=== PATIENT | female | born 1930 | race Caucasian/White ===

== ENCOUNTER → 2017-05-27 | Outpatient (CLI) | payer MEDICARE | END | disposition home or self-care (01) | LOC: LAB 16:35 | PROVIDERS: Physician Assistant | DX: Z01.818 Encounter for other preprocedural examination (principal); N18.9 Chronic kidney disease, unspecified ==

== ENCOUNTER 2017-09-15 09:28 | Inpatient (IN) | payer MEDICARE ==
[~2017-09-15] VITALS: Ht 152.4 cm; Wt 75.7 kg
[2017-09-15] VITALS (7 sets, daily range): BP systolic 120–166; BP diastolic 56–74
[2017-09-15 16:38] LABS: BASO % 0.2 % (0.0-1.0); EOS # 0.2 10*3/uL (0.0-0.4); EOS % 2.6 % (1.0-4.0); HEMATOCRIT 36.3 % (37.0-47.0); HEMOGLOBIN 11.7 g/dl (12.0-16.0); LYMPH # 2.1 10*3/uL (1.3-4.4); LYMPH % 23.9 % (27.0-41.0); MEAN CELL VOLUME 98.1 fl (81.0-99.0); MEAN CORPUSCULAR HGB 31.6 pg (27.0-31.0); MEAN CORPUSCULAR HGB CONC 32.2 g/dl (33.0-37.0); MONO # 0.9 10*3/uL (0.1-1.0); MONO % 10.7 % (3.0-9.0); NEUT # 5.3 10*3/uL (2.3-7.9); NEUT % 62.1 % (47.0-73.0); PLATELET COUNT AUTOMATED 175 10*3/uL (130-400); RED CELL DISTRI WIDTH 13.6 % (0-14.5); WHITE BLOOD COUNT 8.6 10*3/uL (4.8-10.8)
[2017-09-15 16:47] LABS: INTERNATIONAL NORM RATIO 1.1 (2.0-3.5)
[2017-09-15 16:58] LABS: ALBUMIN 3.7 gm/dl (3.1-4.5); CREATININE 3.38 mg/dL (0.55-1.02); PHOSPHOROUS 3.4 mg/dL (2.5-4.9); POTASSIUM 4.8 mmol/L (3.5-5.1); TROPONIN I 0.026 ng/ml (<0.045)
[2017-09-15 16:59] LABS: TOTAL PROTEIN 6.9 gm/dL (6.4-8.2)
[2017-09-15] MEDS ORDERED: PRAVACHOL40 MG PO (18:01)
[2017-09-15] MEDS ORDERED: CALCIUM ACETAT667 MG PO ×2 (18:01→18:02)
[2017-09-15] MEDS ORDERED: ATIVAN0.5 MG PO (18:02)
[2017-09-15] MEDS ORDERED: SENSIPAR30 MG PO (18:02)
[2017-09-15] MEDS ORDERED: AMBIEN10 M1 PO (18:03)
[2017-09-15] MEDS ORDERED: Synthroid,Lev100 MCG PO (18:04)
[2017-09-15] MEDS ORDERED: NORCO 7.5-3251 EACH PO (18:04)
[2017-09-15] MEDS ORDERED: LISINOPRIL10 M1 PO (18:04)
[2017-09-15] MEDS ORDERED: MAGOX 400400 MG PO (18:05)
[2017-09-15] MEDS ORDERED: RENAL CAPS SOFTG1 MG PO (18:06)
[2017-09-16 06:27] LABS: BASO % 0.5 % (0.0-1.0); EOS # 0.2 10*3/uL (0.0-0.4); EOS % 2.7 % (1.0-4.0); HEMATOCRIT 35.8 % (37.0-47.0); HEMOGLOBIN 11.4 g/dl (12.0-16.0); LYMPH % 22.8 % (27.0-41.0); MEAN CELL VOLUME 99.7 fl (81.0-99.0); MEAN CORPUSCULAR HGB 31.8 pg (27.0-31.0); MEAN CORPUSCULAR HGB CONC 31.8 g/dl (33.0-37.0); MONO # 1.2 10*3/uL (0.1-1.0); MONO % 13.2 % (3.0-9.0); NEUT # 5.3 10*3/uL (2.3-7.9); NEUT % 60.3 % (47.0-73.0); PLATELET COUNT AUTOMATED 170 10*3/uL (130-400); RED BLOOD COUNT 3.59 10*6/uL (4.10-5.10); RED CELL DISTRI WIDTH 13.6 % (0-14.5); WHITE BLOOD COUNT 8.8 10*3/uL (4.8-10.8)
[2017-09-16 06:44] LABS: ALBUMIN 3.5 gm/dl (3.1-4.5); CREATININE 3.9 mg/dL (0.55-1.02); PHOSPHOROUS 4.3 mg/dL (2.5-4.9); POTASSIUM 4.9 mmol/L (3.5-5.1); TOTAL PROTEIN 6.9 gm/dL (6.4-8.2)
[2017-09-16 06:49] LABS: THYROID STIM HORMONE (HS) 1.26 uIU/ml (0.358-4.75)
[2017-09-16 08:00] VITALS: BP 135/40
[2017-09-16 08:46] LABS: VITAMIN D, 25-HYDROXY 34.6 ng/mL (30-100)
[2017-09-16 10:28] LABS: BILIRUBIN NEGATIVE (NEGATIVE); BLOOD NEGATIVE (NEGATIVE); CLARITY CLOUDY (CLEAR); COLOR YELLOW (YELLOW); GLUCOSE NEGATIVE (NEGATIVE); KETONE NEGATIVE (NEGATIVE); LEUKO ESTERASE 1+ (NEGATIVE); NITRITE NEGATIVE (NEGATIVE); PH >= 9.0 (5.0-9.0); SPECIFIC GRAVITY 1.015 (1.005-1.030); UROBILINOGEN 0.2 E.U./dl (0.2-1.0)
[2017-09-16 10:39] LABS: BACTERIA 2+; EPITHELIAL CELLS 20-30; WBC TNTC wbc/hpf (0-5)
[2017-09-16 12:00] VITALS: BP 140/77
[2017-09-16 16:00] VITALS: BP 138/64
[2017-09-16 20:00] VITALS: BP 148/48
[2017-09-17] VITALS: BP 113/52
[2017-09-17 07:08] LABS: BASO # 0.1 10*3/uL (0.0-0.1); BASO % 0.6 % (0.0-1.0); EOS # 0.3 10*3/uL (0.0-0.4); EOS % 3.1 % (1.0-4.0); HEMATOCRIT 38.5 % (37.0-47.0); HEMOGLOBIN 12.1 g/dl (12.0-16.0); LYMPH # 1.9 10*3/uL (1.3-4.4); LYMPH % 21.5 % (27.0-41.0); MEAN CELL VOLUME 100.3 fl (81.0-99.0); MEAN CORPUSCULAR HGB 31.5 pg (27.0-31.0); MEAN CORPUSCULAR HGB CONC 31.4 g/dl (33.0-37.0); MEAN PLATELET VOLUME 11.9 fl (9.6-12.3); MONO # 1.3 10*3/uL (0.1-1.0); MONO % 14.7 % (3.0-9.0); NEUT # 5.2 10*3/uL (2.3-7.9); NEUT % 59.6 % (47.0-73.0); PLATELET COUNT AUTOMATED 168 10*3/uL (130-400); RED BLOOD COUNT 3.84 10*6/uL (4.10-5.10); RED CELL DISTRI WIDTH 13.4 % (0-14.5); WHITE BLOOD COUNT 8.7 10*3/uL (4.8-10.8)
[2017-09-17 07:28] LABS: ALBUMIN 3.5 gm/dl (3.1-4.5); CREATININE 2.77 mg/dL (0.55-1.02); PHOSPHOROUS 3.4 mg/dL (2.5-4.9); POTASSIUM 4.5 mmol/L (3.5-5.1)
[2017-09-17 08:00] VITALS: BP 136/62
[2017-09-17 12:00] VITALS: BP 132/53
[2017-09-17 16:00] VITALS: BP 128/54
[2017-09-17 20:00] VITALS: BP 145/56
[2017-09-18] VITALS: BP 140/72
[2017-09-18 07:00] LABS: BASO % 0.3 % (0.0-1.0); EOS # 0.3 10*3/uL (0.0-0.4); EOS % 3.4 % (1.0-4.0); HEMATOCRIT 34.8 % (37.0-47.0); HEMOGLOBIN 11.1 g/dl (12.0-16.0); LYMPH # 1.6 10*3/uL (1.3-4.4); LYMPH % 17.1 % (27.0-41.0); MEAN CELL VOLUME 97.8 fl (81.0-99.0); MEAN CORPUSCULAR HGB 31.2 pg (27.0-31.0); MEAN CORPUSCULAR HGB CONC 31.9 g/dl (33.0-37.0); MEAN PLATELET VOLUME 11.5 fl (9.6-12.3); MONO # 1.3 10*3/uL (0.1-1.0); MONO % 13.9 % (3.0-9.0); NEUT # 5.9 10*3/uL (2.3-7.9); NEUT % 64.9 % (47.0-73.0); PLATELET COUNT AUTOMATED 161 10*3/uL (130-400); RED BLOOD COUNT 3.56 10*6/uL (4.10-5.10); RED CELL DISTRI WIDTH 13.2 % (0-14.5); WHITE BLOOD COUNT 9.1 10*3/uL (4.8-10.8)
[2017-09-18 07:28] LABS: CREATININE 3.74 mg/dL (0.55-1.02); POTASSIUM 4.1 mmol/L (3.5-5.1)
[2017-09-18 08:00] VITALS: BP 138/76
[2017-09-18 12:00] VITALS: BP 124/50
[2017-09-18 16:00] VITALS: BP 143/58
[2017-09-18 20:00] VITALS: BP 152/62
[2017-09-19] VITALS: BP 111/50
[2017-09-19 06:36] LABS: BASO % 0.4 % (0.0-1.0); EOS # 0.4 10*3/uL (0.0-0.4); EOS % 3.7 % (1.0-4.0); HEMATOCRIT 33.4 % (37.0-47.0); HEMOGLOBIN 10.8 g/dl (12.0-16.0); LYMPH # 2.7 10*3/uL (1.3-4.4); LYMPH % 27.6 % (27.0-41.0); MEAN CELL VOLUME 98.5 fl (81.0-99.0); MEAN CORPUSCULAR HGB 31.9 pg (27.0-31.0); MEAN CORPUSCULAR HGB CONC 32.3 g/dl (33.0-37.0); MEAN PLATELET VOLUME 11.6 fl (9.6-12.3); MONO # 1.4 10*3/uL (0.1-1.0); MONO % 14.5 % (3.0-9.0); NEUT # 5.1 10*3/uL (2.3-7.9); NEUT % 53.2 % (47.0-73.0); PLATELET COUNT AUTOMATED 161 10*3/uL (130-400); RED BLOOD COUNT 3.39 10*6/uL (4.10-5.10); RED CELL DISTRI WIDTH 13.2 % (0-14.5); WHITE BLOOD COUNT 9.6 10*3/uL (4.8-10.8)
[2017-09-19 06:47] LABS: POTASSIUM 4.8 mmol/L (3.5-5.1)
[2017-09-19 06:49] LABS: CREATININE 3.61 mg/dL (0.55-1.02)
[2017-09-19 08:00] VITALS: BP 163/84
[2017-09-19 12:00] VITALS: BP 132/50
[2017-09-19 16:00] VITALS: BP 136/54
[2017-09-19 20:00] VITALS: BP 136/51
[2017-09-20 08:00] VITALS: BP 150/64
[2017-09-20 16:00] VITALS: BP 139/65
[2017-09-20 20:00] VITALS: BP 137/58
[2017-09-21] VITALS: BP 140/46
[2017-09-21 08:00] VITALS: BP 147/72
[2017-09-21 12:00] VITALS: BP 144/69
[2017-09-21 16:00] VITALS: BP 108/56
[2017-09-21 20:00] VITALS: BP 122/49
[2017-09-22] VITALS: BP 112/52
[2017-09-22 08:00] VITALS: BP 127/43
[2017-09-22 12:00] VITALS: BP 127/54
[2017-09-22] MEDS ORDERED: NYSTOP60 GM T (14:01)
[2017-09-22] MEDS ORDERED: CYCLOBENZAPRINE10 MG PO (14:01)
[2017-09-22] MEDS ORDERED: AMBIEN10 M1 PO (14:01)
[2017-09-22] MEDS ORDERED: ATIVAN0.5 MG PO (14:01)
[2017-09-22] MEDS ORDERED: LACTULOSE20 GM/30 M PO (14:01)
[2017-09-22] MEDS ORDERED: NORCO 7.5-3251 EACH PO (14:01)
[2017-09-22] MEDS ORDERED: Insulin Lispro, Reco SC (14:01)
== END 2017-09-22 16:31 | disposition other institution (70) | DRG 557 ==
LOC: ED 09:28 → 5E 15:20 → EDHOLD 15:20 → 5E 15:33
PROVIDERS: Internal Medicine; Internal Medicine Nephrology
PROC: 0S9D3ZZ Drainage of Left Knee Joint, Percutaneous Approach (ICD-10-PCS; principal; 2017-09-15)
PROC: 5A1D70Z Performance of Urinary Filtration, Intermittent, Less than 6 Hours Per Day (ICD-10-PCS; 2017-09-16)
PROC: 5A1D70Z Performance of Urinary Filtration, Intermittent, Less than 6 Hours Per Day (ICD-10-PCS; 2017-09-18)
PROC: 5A1D70Z Performance of Urinary Filtration, Intermittent, Less than 6 Hours Per Day (ICD-10-PCS; 2017-09-21)
DX: M62.18 Other rupture of muscle (nontraumatic), other site (principal); N18.6 End stage renal disease; E11.22 Type 2 diabetes mellitus with diabetic chronic kidney disease; E11.65 Type 2 diabetes mellitus with hyperglycemia; I12.0 Hypertensive chronic kidney disease with stage 5 chronic kidney disease or end stage renal disease; I48.0 Paroxysmal atrial fibrillation; M25.062 Hemarthrosis, left knee; M84.452A Pathological fracture, left femur, initial encounter for fracture; M54.9 Dorsalgia, unspecified; S86.912A Strain of unspecified muscle(s) and tendon(s) at lower leg level, left leg, initial encounter; K57.30 Diverticulosis of large intestine without perforation or abscess without bleeding; Z96.653 Presence of artificial knee joint, bilateral; X58.XXXA Exposure to other specified factors, initial encounter; D72.810 Lymphocytopenia; R26.2 Difficulty in walking, not elsewhere classified; E66.09 Other obesity due to excess calories; D72.821 Monocytosis (symptomatic); D64.9 Anemia, unspecified; E03.9 Hypothyroidism, unspecified; M21.952 Unspecified acquired deformity of left thigh; F41.9 Anxiety disorder, unspecified; M79.81 Nontraumatic hematoma of soft tissue; E78.5 Hyperlipidemia, unspecified; G47.00 Insomnia, unspecified; K59.00 Constipation, unspecified; Z95.0 Presence of cardiac pacemaker; Z90.89 Acquired absence of other organs; Z98.51 Tubal ligation status; Z82.49 Family history of ischemic heart disease and other diseases of the circulatory system; Z80.0 Family history of malignant neoplasm of digestive organs; Z84.89 Family history of other specified conditions; Z88.8 Allergy status to other drugs, medicaments and biological substances; Z79.899 Other long term (current) drug therapy; Y93.89 Activity, other specified; Y92.89 Other specified places as the place of occurrence of the external cause; Y99.8 Other external cause status; Z68.33 Body mass index [BMI] 33.0-33.9, adult

== ENCOUNTER 2018-10-13 11:54 | Inpatient (IN) | payer MEDICARE ==
[~2018-10-13] VITALS: Ht 152.4 cm; Wt 77.3 kg
--- NOTE | ~2018-10-13 | EKG ---
[place], [place] ELECTROCARDIOGRAM REPORT NAME: CAROLEE LEYVA UNIT #: [id number] ROOM: 508 DOCTOR: SEBASTIAN DRAFT REPORT BIRTHDATE: [birth year] [facility] Test Date: 2018-10-13 Test Time: 12:18:02 Pat Name: CAROLEE LEYVA Department: Room: 508 Gender: F Sales Warehouse Driver: Joana Godinez : 1930 Requested By: GIO GIANG Order Number: [id number] Reading MD: Jun Alfonso MD Measurements Intervals [place] Rate: 96 P: ND: QRS: -56 QRSD: 160 T: 123 QT: 420 QTc: 531 Interpretive Statements Sinus tachycardia and V-paced complexes Atrial tracking and ventricular pacing noted No further analysis attempted due to paced rhythm Baseline wander in lead(s) II,III,aVF Electronically Signed On 10-16-2018 15:32:26 PST by Jun Alfonso MD CM:EKGRPT:ELECTROCARDIOGRAM REPORT [id number] GIO GIANG EPIPHANY DRAFT REPORT GIO GIANG
[~2018-10-13 11:54] MED LIST: AMBIEN10 M1 PO; ATIVAN0.5 MG PO; CALCIUM ACETAT667 MG PO; CYCLOBENZAPRINE10 MG PO; Insulin Lispro, Reco SC; LACTULOSE20 GM/30 M PO; LISINOPRIL5 MG PO; MAGOX 400400 MG PO; NORCO 7.5-3251 EACH PO; NYSTOP60 GM T; PRAVACHOL40 MG PO; RENAL CAPS SOFTG1 MG PO; SENSIPAR30 MG PO; Synthroid,Lev100 MCG PO
[2018-10-13 11:55] VITALS: BP 104/68
[2018-10-13 12:32] LABS: HEMATOCRIT 38.1 % (37.0-47.0); HEMOGLOBIN 12.3 g/dl (12.0-16.0); MEAN CELL VOLUME 99.5 fl (81.0-99.0); MEAN CORPUSCULAR HGB 32.1 pg (27.0-31.0); MEAN CORPUSCULAR HGB CONC 32.3 g/dl (33.0-37.0); MEAN PLATELET VOLUME 11.1 fl (9.6-12.3); PLATELET COUNT AUTOMATED 152 10*3/uL (130-400); RED BLOOD COUNT 3.83 10*6/uL (4.10-5.10); RED CELL DISTRI WIDTH 13.4 % (0-14.5); WHITE BLOOD COUNT 12.7 10*3/uL (4.8-10.8)
[2018-10-13 12:43] LABS: ACT PARTIAL THROMBO TIME 24.3 SECONDS (20.8-31.5)
[2018-10-13 12:48] LABS: TOTAL CELLS COUNTED 100 #CELLS
[2018-10-13 12:49] LABS: PLATELET SUFFICIENCY NORMAL (NORMAL)
[2018-10-13 13:00] VITALS: BP 123/44
[2018-10-13 13:01] LABS: ALBUMIN 3.8 gm/dl (3.1-4.5); CREATININE 2.48 mg/dL (0.55-1.02); POTASSIUM 4.1 mmol/L (3.5-5.1); TOTAL PROTEIN 6.8 gm/dL (6.4-8.2)
[2018-10-13 15:00] VITALS: BP 108/54
[2018-10-13 15:45] VITALS: BP 110/60
--- NOTE | 2018-10-13 15:45 | NUR ---
Time: 1544 A 88 year old female admitted to 5E under services of KALEB DUQUE DO Pt. arrived via stretcher from ER. Chief complaint: pain to rt arm and pain with deep inspiration which started today. Pt states she had clots in her dialysis shunt and was at [facility] [place] on Tuesday for them to open it up. Daughter states that after the procedure her mom was having blood in urine and nausea and vomiting. States that she had dialysis yesterday and then half a day today which is her normal day. States that she developed pain today to rt arm and pain with deep inspiration while having dialysis. She was sent from dialysis to ER. Noted to have PE's, states she has never had a PE prior to this. MORGAN MARQUEZ
[2018-10-13] MEDS ORDERED: VIRT-CAPS SOFTGE1 MG PO (16:02)
[2018-10-13] MEDS ORDERED: NEURONTIN100 MG PO (16:03)
[2018-10-13] MEDS ORDERED: LORAZEPAM0.5 MG PO (16:18)
[2018-10-13] MEDS ORDERED: LACTULOSE20 GM/30 M PO (16:20)
[2018-10-13] MEDS ORDERED: BIOTIN5000 MC1 SL (16:23)
--- NOTE | 2018-10-13 16:45 | NUR ---
ANSWERING SERVICE WAS NOTIFIED OF DR. MARU LONDON. RESPONSE OF NOTIFICATION WAS SPOKE WITH PHYSICAL THERAPY MANAGER SHE TOOK REQUESTED INFORMATION AND STATES SHE WILL NOTIFY THE TEAM COORDINATOR PHYSICAN. MORGAN MARQUEZ
[2018-10-13 20:00] VITALS: BP 98/55
--- NOTE | 2018-10-13 20:24 | NUR ---
PT RESTING IN BED AT THIS TIME, EYES OPEN. ALERT ORIENTED AND PLEASANT MOOD. HEPARIN DRIP INFUSING PER ORDERS. IV SITE PATENT, DRESSING C/D/I. NO COMPLAINTS VOICED BY PT AT THIS TIME. ALL NEEDS CURRENTLY MET. RESPIRATIONS EASY AND UNLABORED ON ROOM AIR. CALL LIGHT IN REACH.
--- NOTE | 2018-10-13 23:13 | NUR ---
24 HR chart check completed.
--- NOTE | 2018-10-13 23:45 | NUR ---
APTT CALLED TO ANOTHER NURSE 103. DR CARVALHO NOTIFIED OF CRITICAL HIGH APTT. HEPARIN DRIP PUT ON HOLD FOR 60 MIN PER POLICY AND RESTARTED AT THIS TIME. RATE REDUCED FROM 18 UNITS/KG/HR TO 15 UNITS/KG/HR PER POLICY. VERIFIED BY 2 RNS. WILL CONTINUE TO MONITOR.
[2018-10-14] VITALS: BP 100/56
[2018-10-14 04:32] LABS: BASO # 0.1 10*3/uL (0.0-0.1); BASO % 0.6 % (0.0-1.0); EOS # 0.3 10*3/uL (0.0-0.4); EOS % 3.5 % (1.0-4.0); HEMATOCRIT 32.7 % (37.0-47.0); HEMOGLOBIN 10.3 g/dl (12.0-16.0); LYMPH # 2.7 10*3/uL (1.3-4.4); LYMPH % 31.6 % (27.0-41.0); MEAN CELL VOLUME 100.3 fl (81.0-99.0); MEAN CORPUSCULAR HGB 31.6 pg (27.0-31.0); MEAN CORPUSCULAR HGB CONC 31.5 g/dl (33.0-37.0); MONO # 1.1 10*3/uL (0.1-1.0); MONO % 12.8 % (3.0-9.0); NEUT # 4.4 10*3/uL (2.3-7.9); PLATELET COUNT AUTOMATED 134 10*3/uL (130-400); RED BLOOD COUNT 3.26 10*6/uL (4.10-5.10); RED CELL DISTRI WIDTH 13.6 % (0-14.5); WHITE BLOOD COUNT 8.7 10*3/uL (4.8-10.8)
[2018-10-14 04:46] LABS: CREATININE 3.7 mg/dL (0.55-1.02); PHOSPHOROUS 4.4 mg/dL (2.5-4.9); POTASSIUM 4.7 mmol/L (3.5-5.1); TOTAL PROTEIN 5.9 gm/dL (6.4-8.2)
[2018-10-14 04:47] LABS: FREE T4 0.88 ng/dl (0.76-1.46)
[2018-10-14 04:52] LABS: THYROID STIM HORMONE (HS) 2.22 uIU/ml (0.358-4.75)
--- NOTE | 2018-10-14 06:39 | NUR ---
PT C/O BACK PAIN. MORPHINE 2 MG ADMINSITERED VIA IV. TOLERATED WELL BY PT. WILL MONITOR FOR EFFECTIVENESS. CALL LIGHT IN REACH.
[2018-10-14 07:32] LABS: VITAMIN D, 25-HYDROXY 30.6 ng/mL (30-100)
[2018-10-14 08:00] VITALS: BP 136/46
--- NOTE | 2018-10-14 08:50 | NUR ---
Notified dialysis nurse that pt is a routine dialysis MWF pt. Notified of hx, that pt had clots in fistula and on tuesday she had procedure in [place]. Notified she had dialysis on and partial on tuesday, came to ER due to SOB and found multiple PE's. Dialysis nurse states she was not aware pt was here but she will speak with Dr. Oliver regarding pt and see if she will need dialysis today. Reviewed labs.
--- NOTE | 2018-10-14 08:55 | NUR ---
Spoke with Dr. Bearden regarding pt c/o sciatica pain that started suddenly this am. Notified pt is currently not having pain however she is laying flat and not moving. Notified that if pt moves she has terrible pain to rt side of back down right leg. Notified that she had morphine this am that really did not help the pain with movement and she was in a lot of pain while off floor having CXR. Pt is comfortable now but has not moved. Notified him of niece's statements that pt has had this before and when if flares up she is treated with iv steriods. Dr. Bearden states he will discuss with Dr. Mclaughlin when he arrives and they will be up to speak with pt in about 1 hour. Notified pt and niece of this and conversation with dialysis nurse.
--- NOTE | 2018-10-14 09:55 | NUR ---
Pt taken off floor for dialysis.
--- NOTE | 2018-10-14 12:40 | NUR ---
Returned to room after having dialysis.
--- NOTE | 2018-10-14 15:10 | NUR ---
Medicated with morphine per prn order for complaints pain to rt groin.
[2018-10-14 16:00] VITALS: BP 107/58
--- NOTE | 2018-10-14 16:24 | NUR ---
Spoke with Dr. Bearden regarding patients medications and IV start. See new orders.
[2018-10-14 20:00] VITALS: BP 141/57
--- NOTE | 2018-10-14 22:00 | NUR ---
HS MEDICATIONS TAKEN WITH EASE AT THIS TIME. NO S/S OF DISTRES CURRENTLY NOTED. LUNGS DIMINISHED WITH FAINT PB RALES. RESPIRATIONS EASY AND UNLABOERD ON ROOM AIR. ALL NEEDS MET, ALL SAFETY MEASURES IN PLACE. CALL LIGHT IN REACH.
[2018-10-15] VITALS: BP 102/46
--- NOTE | 2018-10-15 05:33 | NUR ---
PT C/O LEFT GROIN PAIN. MORPHINE 2 MG GIVEN VIA IV AT THIS TIME. TOLERATED WELL. WILL MONITOR FOR EFFECTIVENESS. CALL LIGHT IN REACH.
[2018-10-15 08:00] VITALS: BP 145/61
--- NOTE | 2018-10-15 08:25 | NUR ---
24 HR chart check completed.
--- NOTE | 2018-10-15 09:00 | NUR ---
LAYING FLAT IN BED. RESPIRATIONS EASY. LUNGS DIMINISHED, CLEAR. PULSE OX 94% RA. OFFERED AND EDUCATED REGARING TEDS, PLACED AT BEDSIDE. C/O PAIN TO TOP OF RIGHT GROIN RATING A 10, DESCRIBES "FIRE" - MEDICATED WITH ROUTINE NORCO. CALL LIGHT WITHIN REACH. WILL MONITOR FOR EFFECTIVENESS
--- NOTE | 2018-10-15 09:43 | NUR ---
DR MAURICIO HERE TO ASSESS PATIENT AND DISCUSS PLAN OF CARE
--- NOTE | 2018-10-15 10:30 | NUR ---
STATES RELIEF FROM EARLIER MEDS. RESTING IN BED. FAMILY PRESENT AT BEDSIDE. CALL LIGHT WITHIN REACH. NO FURTHER VOICED COMPLAINTS
--- NOTE | 2018-10-15 11:02 | NUR ---
PHYSICAL THERAPY PT EVAL COMPLETED TODAY ON LEVEL 5: FULL EVALUATION TO FOLLOW . RECOMMEND SKILLED PT WHILE HERE TO ADDRESS PAIN ,DECREASED STRENGTH, ENDURANCE, BALANCE AND THUS FUNCTIONAL MOBILITY. PT EVAL IS MODERATE COMPLEXITY BASED ON CHART REIVEW AND TEST RESULTS: 99178. D/C RECOMMENDATIONS ARE SNF ON D/C UNLESS HER PAIN RESOLVES AND ALLOWS HER TO BE UP AND MOBILE ON HER OWN THEN SHE CAN RETURN TO HOME WITH DAUGHTER SUPPORT. THANK YOU FOR REFERRAL SANTHOSH KEYS PT
[2018-10-15 12:00] VITALS: BP 128/46
[2018-10-15 16:00] VITALS: BP 112/44
--- NOTE | 2018-10-15 17:24 | NUR ---
PT MEDICATED WITH IV MORPHINE SLOWLY PER PRN ORDER FOR C/O SCIATIC PAIN. RATES PAIN 05/05. WILL MONITOR EFFECTIVENESS. CALL LIGHT WITHIN REACH.
--- NOTE | 2018-10-15 19:00 | NUR ---
STATES RELIEF FROM EARLIER MORPHINE. CALL LIGHT WITHIN REACH. NO FURTHER VOICED COMPLAINTS
[2018-10-15 20:00] VITALS: BP 161/60
[2018-10-15 20:20] VITALS: BP 152/70
--- NOTE | 2018-10-15 21:35 | NUR ---
SCHEDULED NORCO GIVEN AT THIS TIME. PT RATES PPAIN 710 A CONSTANT, HOT, ACHING FEELING TO RT GROIN/SCIATIC AREA AND DOWN RT LEG. WILL MONITOR.
--- NOTE | 2018-10-15 22:51 | NUR ---
24 HR chart check completed.
[2018-10-16] VITALS: BP 115/50
--- NOTE | 2018-10-16 05:52 | NUR ---
PATIENT RESTING IN BED WITH NO NEEDS MADE. BED IN LOWEST POSITION, CALL LIGHT IN REACH, BED ALARM ON
--- NOTE | 2018-10-16 06:12 | NUR ---
MEDICATED WITH PRN MORPHINE FOR C/O LEG PAIN RATED 8/10 ON A 0/10 PAIN SCALE
[2018-10-16 06:38] LABS: BASO % 0.1 % (0.0-1.0); HEMATOCRIT 38.3 % (37.0-47.0); HEMOGLOBIN 12.5 g/dl (12.0-16.0); LYMPH # 1.6 10*3/uL (1.3-4.4); LYMPH % 10.4 % (27.0-41.0); MEAN CELL VOLUME 99.5 fl (81.0-99.0); MEAN CORPUSCULAR HGB 32.5 pg (27.0-31.0); MEAN CORPUSCULAR HGB CONC 32.6 g/dl (33.0-37.0); MEAN PLATELET VOLUME 11.6 fl (9.6-12.3); MONO # 0.4 10*3/uL (0.1-1.0); MONO % 2.7 % (3.0-9.0); NEUT # 12.9 10*3/uL (2.3-7.9); NEUT % 85.9 % (47.0-73.0); PLATELET COUNT AUTOMATED 219 10*3/uL (130-400); RED BLOOD COUNT 3.85 10*6/uL (4.10-5.10); RED CELL DISTRI WIDTH 13.2 % (0-14.5)
[2018-10-16 06:47] LABS: CREATININE 5.07 mg/dL (0.55-1.02); POTASSIUM 5.8 mmol/L (3.5-5.1)
--- NOTE | 2018-10-16 07:10 | NUR ---
PT AWAKE. BEDSIDE REPORT RECEIVED FROM RANDALL KULKARNI. PT STATES SHE IS EXPERIENCING SOME BURNING ON HER RIGHT SIDE AFTER HER BATH. SHE SAID SHE BELIEVES IT IS FROM THE SOAP SHE USED AND IS REQUESTING LOTION. PT STATES SHE IS NOT HAVING ANY OTHER PAIN OTHER THAN HER USUAL SCIATICA. CALL LIGHT WITHIN REACH.
[2018-10-16 08:00] VITALS: BP 121/46
--- NOTE | 2018-10-16 08:20 | NUR ---
24 HR CHART CHECK COMPLETE.
--- NOTE | 2018-10-16 09:30 | NUR ---
Tooth Polisher in to talk to patient. Patient states lives at HOME with DAUGHTER. There are NO steps in the home. Physician: GEOVANNY [facility]acy: [facility] Home health services: NONE Patient's level of ADLs: INDEPENDENT Patient has working utilities: YES DME: [facility], WALKER AT TIMES Follow-up physician's appointment after d/c: WILL BE MADE BY HOSPITIALIST NURSE DIRECTOR WHEN DISCHARGED Does patient want to access PORTAL?: NO Discharge plan PT STATES SHE LIVES AT HOME WITH HER DAUGHTER. STATES SHE IS NORMALLY INDEPENDENT AND COOKS DAILY. PT IS HAVING SEVERE PAIN IN RIGHT GROIN,HIP AND LEG DUE TO CIATICA PAIN. PT STATES SHE HAS A HISTORY OF PAIN BUT STATES IT GETS WORSE WHEN SHE IS LAYING AROUND. PT IS ALSO DIALYSIS MWF AND RECENTLY HAS A THROBECTOMY AT [facility]. TALKED WITH PT ABOUT HOME HEALTH AND . SKILLED CARE. PT STATES SHE WANTS TO SEE HOW SHE IS DOING. ALLEGRA TRSITAN
--- NOTE | 2018-10-16 10:08 | NUR ---
PHYSICAL THERAPY Patient presented to therapy in supine with head of bed flat due to this being a position of comfort. Patient reports a 7/10 pain level in the low back/ R LE. Patient agrees to therapy session. Patient was identified by name and . Patient performed supine to sitting at EOB transfer with MIN A X 1. Patient sat for less than 10 sec. before she started leaning to her L side and cryed out in increased pain to 10/10. Patient transferred back to supine in bed with MOD A X 1. Patient then rested while Dr. Mclaughlin talked with her for about 10 minutes. Patient then performed supine LE ther ex to the bilateral LEs x 10 reps each, including heel slides, quad sets, ankle pumps, and hip abduction. Patient was left in supine position with call light within reach, bed alarm activated and head of bed slightly elevated. Patient is scheduled to have dialysis today. Patient was 1:1 with this J2EE ENGINEER for 23 minutes today. EWA MCKEON J2EE ENGINEER
--- NOTE | 2018-10-16 11:07 | NUR ---
CONSULT CALLED TO DR. FERNÁNDEZ'S OFFICE FOR RIGHT HIP PAIN.
--- NOTE | 2018-10-16 11:21 | NUR ---
BACK TO ROOM TO TALK WITH PT ABOUT SNF CONSULT. PT CRYING AND UPSET, STATES SHE IS NOT UPSET ABOUT GOING TO A SKILLED FACILITY BUT SHE WAS ALWAYS BETTER BEFORE SHE WENT. STATES THIS IS THE WORSE THE PAIN HAS EVER BEEN. STATES NOTHING IS HELPING PAIN AND THAT THERAPY ATTEMPTED TO GET HER UP AND SHE WAS UNABLE TO GET UP. PT STATES SHE HAS BEEN TO [facility] BEFORE AND WOULD GO BACK THERE IF NEEDED. WILL CONTINUE TO FOLLOW.
--- NOTE | 2018-10-16 11:45 | NUR ---
Patient requesting a referral to [facility], 3 night stay complete. Faxed referral, waiting on review/acceptance.
[2018-10-16 12:00] VITALS: BP 143/67
--- NOTE | 2018-10-16 12:35 | NUR ---
Dania was evaluated by the occupational therapist this date. She reports a decrease in right shoulder and chest pain but she has right back pain with movement that she describes as sciatic nerve pain. Dania has poor sitting tolerance secondary to pain and was unable to complete full supine to sit despite assist and encouragement. Dania requires increased assist with upper and lower body ADL's secondary to decreased balance, decreased sitting tolerance, and right sided back pain. Dania is requesting D/C home with family assist if she progresses well. SNF is currently recommended secondary to her decreased mobility and decreased ADL's. Continue with occupational therapy in the hospital to address balance retraining, sitting endurance, and adaptive ADL's. Sylvie Wells OTR/L
[2018-10-16 16:00] VITALS: BP 169/50
--- NOTE | 2018-10-16 16:10 | NUR ---
PT OFF THE FLOOD FOR CT OF THE PELVIS.
--- NOTE | 2018-10-16 16:25 | NUR ---
PT RETURNED FROM CT.
--- NOTE | 2018-10-16 19:46 | NUR ---
PATIENT RESTING IN BED WITH VISITOR AT BEDSIDE. NO NEEDS MADE. BED IN LOWEST POSITION, CALL LIGHT IN REACH
[2018-10-16 20:00] VITALS: BP 128/58
--- NOTE | 2018-10-16 21:52 | NUR ---
24 HR chart check completed.
[2018-10-17] VITALS: BP 121/56
--- NOTE | 2018-10-17 07:24 | NUR ---
Patient accepted to [facility], 3 night stay complete, PASS/RR complete. Patient can go when medically stable for discharge.
[2018-10-17 08:00] VITALS: BP 176/74
--- NOTE | 2018-10-17 10:00 | NUR ---
ROUTINE NORCO GIVEN TO PT FOR PT'S BACK PAIN. PT RATES PAIN 8/10.
--- NOTE | 2018-10-17 10:15 | NUR ---
CEPHULAC GIVEN PER PRN ORDER FOR C/O CONSTIPATION.
--- NOTE | 2018-10-17 10:34 | NUR ---
PT CAN GO TO [facility] WHEN MEDICALLY STABLE.
--- NOTE | 2018-10-17 11:00 | NUR ---
PT STATES "SOME" RELIEF OF PAIN WITH EARLIER NORCO.
--- NOTE | 2018-10-17 11:00 | NUR ---
OT NOTE Pt was seen this A.M. 1:1 for 15 minute OT session. Upon arrival pt was supine in bed, pt identified by name and . Pt had reports of 2/10 R sciatic pain at rest and with activity a 9/10 (pt favoring R hip area). Pt transferred supine to sit EOB with maxA X 2. Pt tolerated aprox 3-4 minutes of sitting EOB before requesting to lay down. Completed multiple sit to stand transfers from bed level with modA X 2 followed by challenging her static standing tolerance needed for increased I in self care tasks and functional transfers. Pt was able to tolerate aprox 30 seconds and 45 seconds before sitting due to fatigue. Pt transferred sit to supine with maxA X 2. There she was left with call light in hand, tray table in place, and bed alarm activated for safety. Throughout entire session pt had bouts of loud screaming with position changes. Continue with POC as able. ZEINAB Fitzgerald/Marv
--- NOTE | 2018-10-17 11:15 | NUR ---
PHYSICAL THERAPY Patient seen this am 1;1 for therapy visit and was supine in bed upon therapist arrival. Patient reports increased R side Sciatic pain which seems to refer in the R hip area. Patient states this pain ranges from very light at rest 2/10 to quick onset 9/10 depending on LE positioning. Patient instructed in use of bed controls to adjust positioning to promote pressure relief, along with B ankle pumps to improve circulation. Patient transfers supine to sit EOB, MAX A x 2, voicing very loud bouts of "screaming" out in pain. Patient educated on relaxation breathing technique to assist with pain control, tolerating EOB sit x several minutes, CGA. Patient reports slight decrease in pain and was able to complete several sit to stand transfers, Mod/Max A x 2, tolerating < 25 seconds each trial prior to onset of increased pain. Patient needed multiple v/c's to address pain c/o with attmept to decrease volume of patient screaming while attmepting to provide standing pressure relief. Patient returned to supine in bed and remained with call light, tray table and bed alarm activated for safety. Will continue per POC as tolerated, total treatment time 14 minutes. Sam Grant, PLANT OPERATIONS VICE PRESIDENT
--- NOTE | 2018-10-17 11:18 | NUR ---
NOTIFIED DR MOE THAT PT'S CT SCAN RESULTS WHERE AVAILABLE.
[2018-10-17 12:00] VITALS: BP 123/52
--- NOTE | 2018-10-17 13:45 | NUR ---
MEDICATED PT PER PRN ORDER WITH MORPHINE FOR C/O BACK PAIN THAT RATES 8/[address] CASTILLO IN TO SEE PT. UPDATED HIM ON PT'S CONDITION AND CT RESULTS.
--- NOTE | 2018-10-17 14:30 | NUR ---
PT STATES RELIEF OF PAIN WITH EARLIER MORPHINE.
[2018-10-17 16:00] VITALS: BP 118/56
--- NOTE | 2018-10-17 17:38 | NUR ---
PATIENT STATES BACK PAIN IS RATED AT AN 8 WHILE MOVING. SCHEDULED NORCO WAS GIVEN. WILL MONITOR FOR EFFECTIVENESS.
--- NOTE | 2018-10-17 19:21 | NUR ---
PATIENT RESTING IN BED READING A BOOK. DENIES ANY NEEDS AT THIS TIME. BED IN LOWEST POSITION, CALL LIGHT IN REACH
--- NOTE | 2018-10-17 19:29 | NUR ---
24 HR chart check completed.
[2018-10-17 20:00] VITALS: BP 126/55
[2018-10-18] VITALS: BP 136/63
--- NOTE | 2018-10-18 06:12 | NUR ---
PATIENT RESTED WELL THROUGHOUT THE NIGHT. NO NEEDS MADE. BED IN LOWEST POSITION, CALL LIGHT IN REACH
[2018-10-18 06:44] LABS: BASO % 0.2 % (0.0-1.0); HEMATOCRIT 36.8 % (37.0-47.0); LYMPH % 8.7 % (27.0-41.0); MEAN CELL VOLUME 98.7 fl (81.0-99.0); MEAN CORPUSCULAR HGB 32.2 pg (27.0-31.0); MEAN CORPUSCULAR HGB CONC 32.6 g/dl (33.0-37.0); MEAN PLATELET VOLUME 11.3 fl (9.6-12.3); MONO # 0.5 10*3/uL (0.1-1.0); NEUT # 9.9 10*3/uL (2.3-7.9); NEUT % 85.5 % (47.0-73.0); PLATELET COUNT AUTOMATED 210 10*3/uL (130-400); RED BLOOD COUNT 3.73 10*6/uL (4.10-5.10); RED CELL DISTRI WIDTH 13.2 % (0-14.5); WHITE BLOOD COUNT 11.6 10*3/uL (4.8-10.8)
[2018-10-18 06:52] LABS: CREATININE 4.78 mg/dL (0.55-1.02); POTASSIUM 5.1 mmol/L (3.5-5.1)
[2018-10-18 08:00] VITALS: BP 140/56
--- NOTE | 2018-10-18 10:00 | NUR ---
PATIENT GIVEN PRN MORPHINE FOR BACK PAIN AND WAS TAKEN TO DIALYSIS.
--- NOTE | 2018-10-18 12:18 | NUR ---
PATIENT IS DIALYSIS. DOCUMENTING NOT COMPLETED AND 1130 MEDS NOT GIVEN.
--- NOTE | 2018-10-18 13:03 | NUR ---
OT NOTE Attempted to see pt this P.M. for OT session and upon arrival pt was out of room for dialysis. Will check back at a later time/date. ZEINAB Fitzgerald/Marv
--- NOTE | 2018-10-18 13:05 | NUR ---
PHYSICAL THERAPY Patient was approached x 2 this date for therapy and was out of room each attempt, both am / pm in dialysis. Will continue per POC as able. Sam Grant, PATENT LITIGATION ASSOCIATE
--- NOTE | 2018-10-18 13:31 | NUR ---
Patient ok to go to [facility] when medically stable for discharge
--- NOTE | 2018-10-18 14:00 | NUR ---
PATIENT IS BACK TO ROOM FROM DIALYSIS. PATIENT TOLERATED WELL. BED IS IN LOW LOCKED POSITION AND CALL LIGHT IS WITHIN REACH.
[2018-10-18 16:00] VITALS: BP 152/67
[2018-10-18 20:00] VITALS: BP 117/53
--- NOTE | 2018-10-18 23:52 | NUR ---
24 HR chart check completed.
[2018-10-19] VITALS: BP 142/49
[2018-10-19 06:46] LABS: BASO % 0.2 % (0.0-1.0); HEMATOCRIT 40.6 % (37.0-47.0); HEMOGLOBIN 13.5 g/dl (12.0-16.0); LYMPH # 1.5 10*3/uL (1.3-4.4); LYMPH % 11.9 % (27.0-41.0); MEAN CORPUSCULAR HGB 32.9 pg (27.0-31.0); MEAN CORPUSCULAR HGB CONC 33.3 g/dl (33.0-37.0); MEAN PLATELET VOLUME 11.1 fl (9.6-12.3); MONO # 0.7 10*3/uL (0.1-1.0); MONO % 5.4 % (3.0-9.0); NEUT # 10.4 10*3/uL (2.3-7.9); NEUT % 80.3 % (47.0-73.0); PLATELET COUNT AUTOMATED 233 10*3/uL (130-400); RED CELL DISTRI WIDTH 13.2 % (0-14.5)
[2018-10-19 07:23] LABS: POTASSIUM 4.5 mmol/L (3.5-5.1)
[2018-10-19 07:25] LABS: CREATININE 3.35 mg/dL (0.55-1.02)
--- NOTE | 2018-10-19 07:33 | NUR ---
Patient referred to [facility], 3 night stay complete. Patient is ok to go when medically stable for discharge.
[2018-10-19 08:00] VITALS: BP 140/54
--- NOTE | 2018-10-19 08:04 | NUR ---
PT RESTING IN BED, EATING BREAKFAST. NO DISTRESS NOTED WILL MONITOR
--- NOTE | 2018-10-19 10:18 | NUR ---
PT REQUESTED AND GIVEN MORPHINE FOR C/O RIGHT GROIN PAIN PT RATES PAIN 8/10 WILL MONITOR
[2018-10-19 12:00] VITALS: BP 122/50
--- NOTE | 2018-10-19 12:00 | NUR ---
PT STATES THAT MORPHINE HELPED WILL MONITOR
--- NOTE | 2018-10-19 12:30 | NUR ---
Faxed clinical updates to [facility] for review, patient ok to go when medically stable for discharge.
[2018-10-19 16:00] VITALS: BP 109/51
--- NOTE | 2018-10-19 18:00 | NUR ---
PT CONTINUES TO REST IN BED. NO DISTRESS NOTED/ WILL MONITOR CALL LIGHT WITHIN REACH
[2018-10-19 20:00] VITALS: BP 135/51
--- NOTE | 2018-10-19 23:30 | NUR ---
PATIENT MEDICATED PER SCHED ORDER WITH NORCO FOR C/O HIP PAIN. RATED PAIN A 7/10 WITH 10 BEING THE WORST. SEE EMAR. REINFORCED USE OF CALL LIGHT.
--- NOTE | 2018-10-19 23:59 | NUR ---
24 HR chart check completed.
[2018-10-20] VITALS: BP 139/60
[2018-10-20 07:00] LABS: HEMATOCRIT 39.7 % (37.0-47.0); HEMOGLOBIN 12.9 g/dl (12.0-16.0); MEAN CELL VOLUME 96.8 fl (81.0-99.0); MEAN CORPUSCULAR HGB 31.5 pg (27.0-31.0); MEAN CORPUSCULAR HGB CONC 32.5 g/dl (33.0-37.0); MEAN PLATELET VOLUME 11.4 fl (9.6-12.3); PLATELET COUNT AUTOMATED 241 10*3/uL (130-400); RED CELL DISTRI WIDTH 13.1 % (0-14.5)
--- NOTE | 2018-10-20 07:15 | NUR ---
PT TO DIALYSIS VIA BED
[2018-10-20 07:23] LABS: CREATININE 4.37 mg/dL (0.55-1.02); POTASSIUM 5.3 mmol/L (3.5-5.1)
[2018-10-20 07:25] LABS: ATYPICAL LYMPHS 2 % (0-0); PLATELET SUFFICIENCY NORMAL (NORMAL); TOTAL CELLS COUNTED 100 #CELLS
--- NOTE | 2018-10-20 08:55 | NUR ---
OT NOTE Attempted to see pt this A.M. for OT session and upon arrival pt was in dialysis. Will check back at a later time/date. ZEINAB Fitzgerald/Marv
--- NOTE | 2018-10-20 09:53 | NUR ---
PHYSICAL THERAPY Patient was in dialysis this morning. NO therapy provided this AM for this reason. Will check back later. EWA MCKEON TABLET MAKING MACHINE OPERATOR
--- NOTE | 2018-10-20 10:50 | NUR ---
PT HAVING DIALYSIS TODAY. CAN GO TO [facility] WHEN MEDICALLY STABLE.
[2018-10-20 12:00] VITALS: BP 131/51
--- NOTE | 2018-10-20 12:20 | NUR ---
CALLED BY FLOOR RN ALEXIS THAT DAUGHTER WATNED TO TALK TO ME ABOUT [facility] AND SOMEONE TOLD HER THAT SHE WOULD HAVE TO GET HERSELF UP AND DRESSED AND IN A WHEELCHAIR AND GO TO LOB FOR DIALYSIS. PLACED CALL TO KEVON AT [facility] AND SHE STATES SHE HAS TO BE ABLE TO SIT IN WHEELCHAIR BUT THEY WILL HELP HER GET UP AND GET READY AND THEY WILL TRANSPORT HER TO DIALYSIS. INFORMED DAUGHTER AND PT AND THEY ARE SATIFIED WITH INFOMATION.
--- NOTE | 2018-10-20 14:05 | NUR ---
PHYSICAL THERAPY Patient presented to therapy in supine with report of minimal to no pain at all from the sciatica TODAY. Patient's daughter is visiting in the room with patient. Patient agrees to therapy session. Patient was identified by name and . Patient performed supine to sitting at EOB transfer with MIN A X 1. Patient transferred STS with MIN A X 1 from EOB. Patient performed ambulation with W/W and CGA X 2 for 60' x 1 with verbal cues for wider MEHDI and upright posture. Patient transferred back to supine in bed with MIN A X 1. Patient was left in supine in bed with head of bed elevated, call light within reach, and bed alarm activated. Patient's daughter and ZEINAB Carter WITNESSED BED ALARM BEING ACTIVATED. Patient was 1:1 with this PRODUCTION CONTROL SPECIALIST for 20 minutes total. EWA MCKEON PRODUCTION CONTROL SPECIALIST
--- NOTE | 2018-10-20 14:05 | NUR ---
OT NOTE Pt was seen this P.M. 1:1 for 15 minute OT session. Upon arrival pt was supine in bed, pt identified by name and . Pt had reports of "slight" sciatica pain. Pt transferred supine to sit EOB with SBA. While sitting EOB pt donned her socks with supervision. Functional mobility completed into the bathroom with SBA and use of w/w for UE support. There she stood sink side while washing her hands, face, and completing hair care with SBA. Pt required education on walker safety while in the bathroom due to wanting to leave behind her versus using. Educated pt on how to place at sink side so if a LOB were to occure she had the UE support. Functional mobility completed back into the bedroom with SBA where she transferred sit to supine with SBA. Pt was left supine in bed with call light in hand, tray table in place, and bed alarm activated for safety. Continue with POC as able. ZEINAB Fitzgerald/Marv
[2018-10-20 16:00] VITALS: BP 130/45
--- NOTE | 2018-10-20 16:07 | NUR ---
OCCUPATIONAL THERAPY CO-SIGN I approve of the Occupational Therapy notes written above. GABBY SHIELDS OTR/Marv
--- NOTE | 2018-10-20 18:23 | NUR ---
PT REQUESTED AND GIVEN ATIVAN FOR ANXIETY CARLA MONITOR
[2018-10-20 20:00] VITALS: BP 95/50
[2018-10-21] VITALS: BP 96/54
[2018-10-21 07:09] LABS: POTASSIUM 5.1 mmol/L (3.5-5.1)
[2018-10-21 07:13] LABS: ALBUMIN 2.8 gm/dl (3.1-4.5); CREATININE 3.53 mg/dL (0.55-1.02); PHOSPHOROUS 3.8 mg/dL (2.5-4.9); TOTAL PROTEIN 5.3 gm/dL (6.4-8.2)
[2018-10-21 08:00] VITALS: BP 119/54
[2018-10-21] MEDS ORDERED: ELIQUIS5 M1 PO (11:29)
[2018-10-21] MEDS ORDERED: HYDROCODONE-AC1 EAC2 PO (11:29)
[2018-10-21] MEDS ORDERED: LORAZEPAM0.5 MG PO (11:29)
[2018-10-21] MEDS ORDERED: NEURONTIN300 MG PO (11:29)
[2018-10-21] MEDS ORDERED: PREDNISONE10 MG PO (11:31)
[2018-10-21 12:00] VITALS: BP 137/48
--- NOTE | 2018-10-21 14:18 | NUR ---
Discharge instructions reviewed with patient/family. Patient receptive and verbalizes understanding. Follow-up care arranged. Written instructions given to patient/family. PATIENT DISCHARGED TO [facility], TO FRONT LOBBY BY WHEELCHAIR, FOR TRANSPORT BY PRIVATE VEHICLE WITH GRANDDAUGHTER. REPORT CALLED TO RECEIVING NURSE AT [facility]. UZAIR DUBON
--- NOTE | 2018-10-23 07:54 | NUR ---
PHYSICAL THERAPY CO-SIGN I approve of the Phyical Therapy notes written above. YESSENIA MICHELE PT
--- NOTE | 2018-10-23 07:59 | NUR ---
OCCUPATIONAL THERAPY CO-SIGN I approve of the Occupational Therapy notes written above. GABBY SHIELDS OTR/Marv
== END 2018-10-21 14:18 | disposition other institution (70) | DRG 175 ==
LOC: ED 11:54 → 5E 15:00 → EDHOLD 15:00 → 5E 15:14
PROVIDERS: Internal Medicine; Nurse Practitioner Family; Registered Nurse; ADMIT Internal Medicine
PROC: 5A1D70Z Performance of Urinary Filtration, Intermittent, Less than 6 Hours Per Day (ICD-10-PCS; principal; 2018-10-14)
PROC: 5A1D70Z Performance of Urinary Filtration, Intermittent, Less than 6 Hours Per Day (ICD-10-PCS; 2018-10-20)
DX: I26.99 Other pulmonary embolism without acute cor pulmonale (principal); N18.6 End stage renal disease; E11.22 Type 2 diabetes mellitus with diabetic chronic kidney disease; D64.9 Anemia, unspecified; E11.65 Type 2 diabetes mellitus with hyperglycemia; E03.9 Hypothyroidism, unspecified; F41.9 Anxiety disorder, unspecified; E78.5 Hyperlipidemia, unspecified; K57.90 Diverticulosis of intestine, part unspecified, without perforation or abscess without bleeding; M25.551 Pain in right hip; M54.9 Dorsalgia, unspecified; M54.10 Radiculopathy, site unspecified; E66.9 Obesity, unspecified; I10 Essential (primary) hypertension; R74.8 Abnormal levels of other serum enzymes; Z96.653 Presence of artificial knee joint, bilateral; R74.0 Nonspecific elevation of levels of transaminase and lactic acid dehydrogenase [LDH]; E80.6 Other disorders of bilirubin metabolism; Z99.2 Dependence on renal dialysis; Z68.33 Body mass index [BMI] 33.0-33.9, adult; Z90.49 Acquired absence of other specified parts of digestive tract; Z98.51 Tubal ligation status; Z95.0 Presence of cardiac pacemaker; Z82.49 Family history of ischemic heart disease and other diseases of the circulatory system; Z80.0 Family history of malignant neoplasm of digestive organs; Z79.899 Other long term (current) drug therapy